=== PATIENT | female | born 1945 ===

== ENCOUNTER 2019-03-16 12:55 | Outpatient (CLI) | payer SELFPAY | END 2019-03-16 12:56 | disposition EMS.NT | LOC: EMS 12:55 | PROVIDERS: ATTEND Surgery | DX: M25.561 Pain in right knee (principal); V23.4XXA Motorcycle driver injured in collision with car, pick-up truck or van in traffic accident, initial encounter; Y92.413 State road as the place of occurrence of the external cause ==